=== PATIENT | male | born 1960 | race Caucasian/White ===

== ENCOUNTER → 2018-06-21 13:49 | Outpatient (CLI) | payer BC, SELFPAY ==
--- NOTE | 2018-06-21 13:58 | RAD_ITS ---
STUDY: X-RAY - RIGHT SHOULDER REASON FOR EXAM: Male, 57 years old. Shoulder/AC joint pain. TECHNIQUE: 4 view(s) of the shoulder. COMPARISON: None. FINDINGS: Normal glenohumeral articulation. There is degenerative arthrosis of the acromioclavicular joint without inferior osseous spur formation. Normal acromion. There is no acute fracture, dislocation or destructive osseous pathology. Normal humeral head and visualized proximal humerus. The soft tissue structures are unremarkable. Normal visualized pulmonary apex. RAD/Shoulder min 2 Views IMPRESSION: Degenerative changes of the acromioclavicular joint. Electronically Signed: Ole Henry DO at 23:03 EST Tel [phone], Service support ,
== END ==
PROVIDERS: Family Provider Internal Medicine; PCP Internal Medicine; Referring Provider Internal Medicine; Visit Provider Internal Medicine
DX: M75.81 Other shoulder lesions, right shoulder (principal)
CPT/HCPCS: 73030

== ENCOUNTER → 2018-10-06 10:43 | Outpatient (CLI) | payer BC, SELFPAY ==
--- NOTE | 2018-10-06 10:49 | US_ITS ---
STUDY: ABDOMINAL ULTRASOUND - RIGHT UPPER QUADRANT REASON FOR VISIT: Male, 57 years old. Elevated LFT TECHNIQUE: Ultrasound evaluation of the right upper quadrant was performed with real-time and static sunshine-scale imaging. TECHNICAL QUALITY: Adequate. COMPARISON: None. FINDINGS: Liver: The liver measures 15.6 cm. There is increased echogenicity consistent with fatty infiltration. The bile ducts are within normal limits. There is hepatic color flow. The direction of portal flow is hepatopetal. There is no demonstrated mass lesion. Gallbladder: Normal distended gallbladder. The gallbladder wall measures 2 mm. There is a negative sonographic Staples's sign. There is no pericholecystic fluid. There are no gallstones. There is a nondependent solid echogenic structure at the gallbladder fundus measuring 5 x 5 x 3 mm, consistent with polyp. Common Bile Duct (C.B.D.): The common bile duct measures 5.6 mm. Pancreas: Normal size of the head, body and tail of the pancreas. There is normal echogenicity of the pancreas. There is no demonstrated pancreatic mass or cyst. Right Kidney: Normal size of the right kidney. The right kidney measures 11.5 cm. Normal renal cortex. The right cortex measures cm. There is no demonstrated renal mass or cyst. There is no right hydronephrosis. US/Liver IMPRESSION: Subcentimeter gallbladder polyp. Fibrofatty infiltration of the liver. Electronically Signed: Ghassan Orellana, at 13:36 EDT Tel , Service support ,
== END ==
PROVIDERS: Family Provider Internal Medicine; PCP Internal Medicine; Referring Provider Internal Medicine; Visit Provider Internal Medicine
DX: R94.5 Abnormal results of liver function studies (principal)
CPT/HCPCS: 76705

== ENCOUNTER 2021-09-14 10:32 | Outpatient (CLI) | payer BC, SELFPAY ==
--- NOTE | 2021-09-14 10:38 | US_ITS ---
STUDY: THYROID ULTRASOUND EXAMINATION OF 1042 HOURS ON 09/14/2021 REASON FOR EXAM: 60-year-old male with a palpable thyroid nodule. TECHNIQUE: Ultrasound evaluation of the thyroid was performed with real-time and static sunshine-scale imaging. COMPARISON: None. FINDINGS: The thyroid gland is mildly enlarged. RIGHT LOBE: The right lobe of the thyroid gland measures 6.3 cm in length by 2.6 cm in width by 2.7 cm in AP diameter. The inferior aspect of the right thyroid lobe is mildly heterogeneous in appearance. There is a 2.0 cm x 1.6 cm x 1.9 cm heterogeneous solid nodule in the inferior pole of the right thyroid lobe. There is an 8 mm by 3 mm x 8 mm low-attenuation solid nodule in the superior pole of the right thyroid lobe. There is also a 6 mm x 4 myelogram by 4 mm solid nodule anteriorly in the superior pole of the right thyroid lobe. LEFT LOBE: The left lobe of the thyroid gland measures 6.43 centimeters in length by 2.8 cm in width by 2.9 cm in AP diameter. The inferior aspect of the left thyroid lobe is heterogeneous in appearance. There is a homogeneous echotexture. There are no demonstrated solid, cystic or complex lesions. There is a pulmonary by 3 mm x 4 mm solid nodule anteriorly in the superior portion of the right thyroid lobe. There is an 8 mm x 7 mm x 7 mm solid nodule in the posterior mid body of the left thyroid lobe. ISTHMUS: The isthmus measures 0.78 cm and is without cystic or solid masses. . There is no evidence of parathyroid abnormalities. The regional lymph nodes are normal. US/Thyroid IMPRESSION: 1. Mild enlargement of the thyroid gland. 2. Presence of 3 solid nodules in the right thyroid lobe and 2 solid nodules in the left thyroid lobe, as detailed above. 3. No evidence of thyroid cystic lesions. 4. Normal isthmus. 5. No parathyroid abnormalities. 6. No lymphadenopathy. Electronically Signed: Steven Quiles MD at 18:42 EDT ,
== END 2021-09-14 23:59 | disposition home or self-care (01) ==
PROVIDERS: PCP Internal Medicine; Referring Provider Internal Medicine; Visit Provider Internal Medicine
DX: E04.1 Nontoxic single thyroid nodule (principal)
CPT/HCPCS: 76536

== ENCOUNTER → 2021-10-16 | Outpatient (CLI) | payer BC, SELFPAY ==
--- NOTE | 2021-10-15 | ASPIG_PTH ---
PATIENT: RAJ [facility]AM [facility] U#:[id number] AGE/SX: 60/M ROOM: RE10/16/[address]: Dr. Mario Carias MD : 1960 BED: DIS: 10/16/2021 SPEC #: [id number] RECD: 10/16/21 13:19 STATUS: KIERRA RAGHU #: [id number] KEMAL: 10/15/21 00:[address]: Mario Carias DEPT: CYTOLOGY RECD BY: Piotr Osei ENTERED: 10/16/21 13:32 SP TYPE: ASP OUT OTHR DR: Dr. Bridgett Guzman, DO Tissues: A - Thyroid gland, NOS B - Thyroid gland, NOS Procedures: FNA Specimen Adequacy Special Stain Group II Surgery Specimen Level IV Cytology Other HEADER OPERATION: Fine needle aspiration of right thyroid PRE-OP DIAGNOSIS: Abnormal thyroid ultrasound TISSUE SUBMITTED: A ? FNA right thyroid fluid, B - FNA right thyroid x12 slides DIAGNOSIS CYTOLOGY A. Right thyroid nodule fluid, fine needle aspiration (cytospin and cell block): Rare benign follicular cells noted. B. Right thyroid nodule, fine needle aspiration (smears): Consistent with benign follicular nodule (Sheridan category II). Adequate for evaluation. See comment. SJ:ryan 10/17/2021 COMMENT Correlation with clinical, radiologic findings and appropriate follow up are necessary. CYTOLOGY STUDY Slides are reviewed. CYTOLOGY GROSS A - Received is 30 ml of light claros cloudy fluid labeled with the patient's name and and designated per the requisition as right thyroid. Submitted for cytology preparation including cell block. B - Received are 12 smears labeled with the patient's name and designated per the requisition as right thyroid. Submitted for staining. / ryan 10/16/2021 TC:5 CPT: 02166, 90930 x2
== END | disposition home or self-care (01) ==
LOC: LABSPEC 11:54
PROVIDERS: PCP Internal Medicine; Referring Provider Surgery; Visit Provider Surgery
DX: R93.89 Abnormal findings on diagnostic imaging of other specified body structures (principal)
CPT/HCPCS: 88161; 88172; 88305; 88313

== ENCOUNTER 2022-10-20 13:56 | Outpatient (RCR) | payer BC, SELFPAY ==
--- NOTE | 2022-10-29 09:38 | HP.PTEVAL_ITS ---
Patient's Visit Information RAJ LAM is a 61 year old M referred to Physical Therapy by Dr. Bridgett Guzman DO with a diagnosis of Lumbar radiculopathy. Date of Evaluation: 10/29/22 Physical Therapist: Jake Powers DPT - Visit Plan Frequency: 2x /Week Duration: 6 Weeks Plan: Start with lumbar ROM into extension, HS stretching. Progress hip and core strengthening. - Subjective Pt. is here today for his initial evaluation with diagnosis of lumbar radiculopathy. Pt. reports having some low back pain that radiates into his glute at times. He reports noticing it the most with running and playing basketball. He would like to get back into these things, but is a little hesitant to do so. Pt. has had on and off symptoms for a few years, but was more noticable recently when he was on a trip and was playing basketball and felt a higher amount of pain for a few days. He is doing better now, but is hesitant to get back into activities due to his previous experience. He reports no N/T in either. Pt. reports no sudden weakness in his LEs. He is hopeful to increase his strength in order to get back to all recreational activities without limitations. - Pain Lumbar spine Pain Intensity (Out of 10): 0 Pain Intensity Range: 0, 3 - Objective POSTURE: Pt. has decent posture in stance. Pt. has slight sway back posture. Decreased lumbar lordosis. PALPATION: Pt. has no tenderness along lumbar spine, mild piriformis pain on L side. NEURO: normal sensation in BLEs. Normal DTR of BLEs. Pt. is able to rise on heels and toes without issues. ROM: LUMBAR SPINE: flexion min loss NE, ext min loss NE, SB min loss bilat NE, rotation min loss NE bilat. Pt. has tight HS bilaterally. NO increase in symptoms with trials. Pt. has tigthness with hip ER/IR motions bilaterally as well. MMT: BLEs 5/5 throughout, except: B hips: 4+/5 throughout. Core strength- poor+. GAIT: Pt. has normal gait pattern. No increase in symptoms this date. - Balance/Special Test Scores Oswestry Low Back Score: 1 - Goals Goal 1:: LTG: Pt. to be I with HEP. Goal Time Frame: 4-6 Weeks Goal 2:: STG: PT. to be able to complete all job activities without increase in symptoms. Goal Time Frame: 2-4 Weeks Goal 3:: LTG: pt. to have increased lumbar spine ROM to full without increase in symptoms. Goal Time Frame: 4-6 Weeks Goal 4:: LTG: Pt. to have increased lumbar and core strength to 5/5 throughout in order to reduce stress to lumbar spine with all sporting and recreational activities. Goal Time Frame: 4-6 Weeks Goal 5:: LTG: Pt. to complete all recreational activities without increase in lumbar spine and LE symptoms. Goal Time Frame: 4-6 Weeks - Rehabilitation Potential Physical Therapy Diagnosis: Pt. has signs and symptoms consistent with Lumbar radiculopathy. Pt. did have increased symptoms over the past few weeks after playing basketball. 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 He does like to play sports, but do to his weakness he does experience some discogenic issues. I would like to work on core stability and strengthening progressing back to all recreational activities. Rehabilitation Potential: Excellent - Anticipated Interventions Patient/Client Instruction: Educate patient on: Condition, Plan of Care, Risk Factors, Benefits of Fitness Program For the Purpose of:: To improve safety, To improve health and function, To foster healthy habits, To improve decision making, To facilitate caregiver knowledge, To improve self management, To prevent re-injury, To improve ability to perform tasks related to life management Therapeutic Exercise to Include: Strength training, Power training, Endurance training, Flexibilty training, Dynamic Lumbar Stabilization, Shazia Exercises For the Purpose of:: To decrease pain, To increase ROM, To improve nutrient delivery to tissue, To increase oxygenation perfusion, To improve muscle performance and motor function, To improve ability to perform ADL's, To increase tolerance to activity/condition/position Thank you for the opportunity to evaluate your patient. For Medicare and Medicare HMO plans, please review the plan of care and approve it. It will need to be FAXED BACK to us at [phone] for Medicare purposes. For Medicare only, by signing this I certify the plan of care. Please let me know if there are questions or concerns regarding this plan of care. Physician Signature: Date:
--- NOTE | 2023-03-16 08:25 | HP.PT.NRP ---
Patient Information Patient Information: RAJ LAM was seen in my office for initial evaluation on 10/29/22. The following Plan of Care was established for this patient: POC Established Initial Frequency: 2x /Week Initial Duration: 6 Weeks Anticipated Interventions Patient/Client Instruction: Educate patient on: Condition, Plan of Care, Risk Factors and Benefits of Fitness Program For the Purpose of:: To improve safety, To improve health and function, To foster healthy habits, To improve decision making, To facilitate caregiver knowledge, To improve self management, To prevent re-injury and To improve ability to perform tasks related to life management Therapeutic Exercise to Include: Strength training, Power training, Endurance training, Flexibilty training, Dynamic Lumbar Stabilization and Shazia Exercises For the Purpose of:: To decrease pain, To increase ROM, To improve nutrient delivery to tissue, To increase oxygenation perfusion, To improve muscle performance and motor function, To improve ability to perform ADL's and To increase tolerance to activity/condition/position Last Seen Last Seen: This patient was last seen in our office 11/12/22. Pertinent comments regarding their Physical therapy will appear below: Pt. was seen for his lumbar radiculopathy in PT. Pt. has not been seen in several months and will be DC from PT at this point in time. At this point I will be discontinuing this patient from physical therapy. I would be happy to see this patient again in the future if found appropriate by the physician. Thank you! Jake Powers, DPT Balance/Gait/Functional tests Balance/Special Test Scores Oswestry Low Back Score: 1
== END 2022-10-20 19:00 | disposition home or self-care (01) ==
LOC: PT 13:56
PROVIDERS: PCP Internal Medicine; Referring Provider Internal Medicine; Visit Provider Internal Medicine
DX: M54.16 Radiculopathy, lumbar region (principal)
CPT/HCPCS: 97161

== ENCOUNTER → 2023-12-18 | Outpatient (CLI) | payer OTHER, SELFPAY ==
--- NOTE | 2023-12-18 14:10 | US_ITS ---
EXAM: US SOFT TISSUES HEAD AND NECK, THYROID CLINICAL INDICATION: thyroid nodule TECHNIQUE: Greyscale and color doppler imaging was performed of the thyroid gland. COMPARISON: 09/14/2021 FINDINGS: LEFT THYROID LOBE: The left thyroid lobe measures 4.8 x 2.6 x 2.9 cm. Within the left thyroid lobe, there is a 1.4 x 1.1 x 1.4 cm nodule. This appears to have increased in size since prior examination. This nodule is solid or almost completely solid, hyperechoic or isoechoic, [id number], ill-defined and contains no echogenic foci. TI-RADS points: 3. TI-RADS category: TR3. This nodule is mildly suspicious but no FNA or follow-up is necessary given the small size of this nodule. RIGHT THYROID LOBE: The right thyroid lobe measures 4.8 x 2.7 x 3.4 cm. There is a 7 mm nodule in the right thyroid lobe. This nodule is spongiform and smaller when compared to the prior examination.. TI-RADS points: 0. TI-RADS category: TR1. This nodule is benign and no FNA or follow-up is necessary. No. There is a 5 mm nodule in the superior right thyroid lobe, similar to prior exam. This nodule is solid or almost completely solid, hypoechoic, [id number], smoothly marginated and contains no echogenic foci. TI-RADS points: 4. TI-RADS category: TR4. This nodule is moderately suspicious but no FNA or follow-up is necessary given the small size of this nodule. There is a 1.7 x 1.5 x 1.6 cm nodule in the inferior right thyroid lobe. This nodule is solid or almost completely solid, hyperechoic or isoechoic, [id number], ill-defined and contains no echogenic foci. It is unchanged compared to the prior exam. TI-RADS points: 3. TI-RADS category: TR3. This nodule is mildly suspicious. Recommend follow-up thyroid ultrasounds at 2 and 4 years. ISTHMUS: The thyroid isthmus measures 0.6 cm. No thyroid nodules are present. US/Thyroid IMPRESSION: Thyroid nodules as detailed above. Recommend follow-up ultrasound examination at 2 and 4 years. Electronically Signed: Stephon Fair DO at 11:30 EDT ,
== END | disposition home or self-care (01) ==
PROVIDERS: PCP Internal Medicine; Referring Provider Internal Medicine; Visit Provider Internal Medicine
DX: E04.1 Nontoxic single thyroid nodule (principal)
CPT/HCPCS: 76536

== ENCOUNTER → 2024-11-24 | Outpatient (CLI) | payer OTHER, SELFPAY ==
--- NOTE | 2024-11-24 16:27 | US_ITS ---
PROCEDURE: THYROID 11/24/2024 REASON FOR EXAM: THYROID NODULE TECHNIQUE: High-frequency thyroid ultrasound, including grayscale and color-flow images. REFERENCE LINKS: TI-RADS Chart: Http's://[email or web address]-[email or web address]-rads/TI-rads TI-RADS Calculator Tool with Reference Images: [email or web address]-[email or web address]-imaging/tirades-calculator/ FINDINGS: Right thyroid lobe size: cm Left thyroid lobe size: cm Isthmus: cm Background parenchymal echotexture is homogeneous. Nodules: 1.. Lobe: Right, Location: Right lobe, mid, Size: 1.7 cm cm Composition: Solid or almost completely solid (+2) Echogenicity: Hypoechoic Margin: Smooth (+0) Shape: Wider than tall Echogenic Foci: None (+0) TI-RADS: TR 4 2.. Lobe: Right, Location: Mid superior, Size: 0.7 cm, Stability: Composition: Echogenicity: Margin: Shape: Echogenic Foci: TI-RADS: <2 = TR 1 * 2 = TR 2 * 3 = TR 3 * 4-6 = TR 4 * >6 = TR 5 3. Lobe: Right, Location: Mid superior, Size: 0.6 cm, Stability: Composition: Echogenicity: Margin: Shape: Echogenic Foci: TI-RADS: <2 = TR 1 * 2 = TR 2 * 3 = TR 3 * 4-6 = TR 4 * >6 = TR 5 1.. Lobe: Left, Location: Medial mid, Size: 0.5 cm, Stability: Composition: Echogenicity: Margin: Shape: Echogenic Foci: TI-RADS: <2 = TR 1 * 2 = TR 2 * 3 = TR 3 * 4-6 = TR 4 * >6 = TR 5 2.. Lobe: Left, Location: Mid, Size: 1.2 cm, Stability: Composition: Echogenicity: Margin: Shape: Echogenic Foci: TI-RADS: <2 = TR 1 * 2 = TR 2 * 3 = TR 3 * 4-6 = TR 4 * >6 = TR 5 3.. Lobe: Left, Location: Mid inferior, Size: 0.5 cm, Stability: Composition: Echogenicity: Margin: Shape: Echogenic Foci: TI-RADS: <2 = TR 1 * 2 = TR 2 * 3 = TR 3 * 4-6 = TR 4 * >6 = TR 5 US/Thyroid IMPRESSION: RECOMMENDATION: Based on most suspicious nodule. Nodule size = largest diameter Only evaluate nodule if =>5 mm. Growth > 20% in 2 dimensions = worsening. Follow up to 4 nodules. Recommend biopsy for no more than 2 nodules. Reading Location: [facility]
== END | disposition home or self-care (01) ==
LOC: US 16:26
PROVIDERS: PCP Internal Medicine; Referring Provider Internal Medicine; Visit Provider Internal Medicine
DX: E04.1 Nontoxic single thyroid nodule (principal)
CPT/HCPCS: 76536